=== PATIENT | male | born 1950 | race Hispanic/Latino ===

== ENCOUNTER 2018-01-22 13:59 | Emergency (ER) | payer MEDICARE, OTHER ==
[2018-01-22 14:27] VITALS: BP 137/80; PULSE 80; RESP 20; TEMP 98.4; O2SAT 97
--- NOTE | 2018-01-22 14:33 | C.PDOC ---
History Of Present Illness 67 y/o male presents to ER complaining of pain to his left 3rd and 4th digit s/p fall 2 weeks ago. States he accidentally fell down from the table and hit his left hand, hurting his 3rd and 4th digits. Patient still has hand pain but denies LOC, neck pain, or other injuries. Time Seen by Provider: 01/22/18 14:32 Chief Complaint (Nursing): Upper Extremity Problem/Injury History Per: Patient History/Exam Limitations: no limitations Onset/Duration Of Symptoms: Days Current Symptoms Are (Timing): Still Present Past Medical History Reviewed: Historical Data, Nursing Documentation, Vital Signs Vital Signs: Last Vital Signs Temp 98.4 F 01/22/18 14:23 Pulse 80 01/22/18 14:23 Resp 20 01/22/18 14:23 BP 137/80 01/22/18 14:23 Pulse Ox 97 01/22/18 14:23 - Medical History PMH: Hyperlipidemia, Hypothyroidism Family History: States: No Known Family Hx - Social History Hx Alcohol Use: No Hx Substance Use: No - Immunization History Hx Tetanus Toxoid Vaccination: No Hx Influenza Vaccination: No Hx Pneumococcal Vaccination: No Review Of Systems Except As Marked, All Systems Reviewed And Found Negative. Musculoskeletal: Positive for: Hand Pain (3rd and 4th digits). Negative for: Neck Pain Physical Exam - Physical Exam Appears: Non-toxic, No Acute Distress Skin: Warm, Dry Head: Atraumatic, Normacephalic Eye(s): bilateral: Normal Inspection Oral Mucosa: Moist Neck: Supple Extremity: Tenderness (to proximal 4th finger, minimal), Capillary Refill (less than 2 seconds), Swelling (of L hand 3rd finger), Other (pain to palpation of his L third finger; TTP of distal L hand) Neurological/Psych: Oriented x3, Normal Speech, Normal Motor, Normal Sensation Gait: Steady ED Course And Treatment O2 Sat by Pulse Oximetry: 97 (RA) Pulse Ox Interpretation: Normal - Other Rad Left Hand X-Ray X-Ray: Read By Radiologist Interpretation: FINDINGS: BONES: Questionable fracture of the volar plate middle phalanx 3rd finger. There also appears to be mild surrounding soft tissue swelling the level of the PIP joint. Questionable small exostosis arising from the distal radial aspect of the proximal phalanx 3rd finger as well... JOINTS: Multi articular degenerative osteoarthritis. SOFT TISSUES: Normal. OTHER FINDINGS: None. IMPRESSION: Questionable fracture volar plate middle phalanx 3rd finger. There also appears to be mild surrounding soft tissue swelling the level of the PIP joint there may also be a small exostosis arising from the distal radial aspect proximal phalanx 3rd finger as well. Medical Decision Making Medical Decision Making: Impression: Left Hand Pain Plan: --Tylenol --Left Hand X-Ray X-ray showed fracture to left 3rd digit. volar splint placed by tech and checked by me. No n/v deficits. Patient is to follow up with Dr. Oconnor. Disposition Counseled Patient/Family Regarding: Studies Performed, Diagnosis, Need For Followup - Disposition Referrals: Ike Oconnor MD [Staff Provider] - Disposition: HOME/ ROUTINE Disposition Time: 14:51 Condition: STABLE Additional Instructions: FOLLOW UP WITH DR. OCONNOR ON TUESDAY WITHOUT FAIL FOR RE-EVALUATION AND OFFICIAL XRAY REPORT. IF SYMPTOMS GET WORSE OR ANY NEW CONCERNING SYMPTOMS DEVELOP RETURN TO ED. TAKE TYLENOL OR MOTRIN OVER THE COUNTER NEEDED FOR PAIN. Instructions: Finger Fracture (DC) Forms: [facility] ([place]), General Discharge Instructions - Clinical Impression Clinical Impression: Finger fracture - PA / SCAFFOLDING HELPER / Resident Statement MD/DO has reviewed & agrees with the documentation as recorded. - Scribe Statement The provider has reviewed the documentation as recorded by the Scribe Marychuy Weiner All medical record entries made by the Scribe were at my direction and personally dictated by me. I have reviewed the chart and agree that the record accurately reflects my personal performance of the history, physical exam, medical decision making, and the department course for this patient. I have also personally directed, reviewed, and agree with the discharge instructions and disposition.
--- NOTE | 2018-01-22 15:13 | RAD ---
PROCEDURE: Left Hand Radiographs. HISTORY: pain COMPARISON: None. FINDINGS: BONES: Questionable fracture of the volar plate middle phalanx 3rd finger. There also appears to be mild surrounding soft tissue swelling the level of the PIP joint. Questionable small exostosis arising from the distal radial aspect of the proximal phalanx 3rd finger as well... JOINTS: Multi articular degenerative osteoarthritis. SOFT TISSUES: Normal. OTHER FINDINGS: None. IMPRESSION: Questionable fracture volar plate middle phalanx 3rd finger. There also appears to be mild surrounding soft tissue swelling the level of the PIP joint there may also be a small exostosis arising from the distal radial aspect proximal phalanx 3rd finger as well.
== END 2018-01-22 15:37 | disposition home or self-care (01) ==
LOC: C.ER 13:59
DX: S62.623A Displaced fracture of middle phalanx of left middle finger, initial encounter for closed fracture (principal); W17.89XA Other fall from one level to another, initial encounter